=== PATIENT | male | born 1955 | race Caucasian/White ===

== ENCOUNTER 2022-10-10 09:00 | Observation (INO) ==
--- NOTE | 2022-09-05 08:38 | PAT Medication Instructions ---
Medication Instructions Date of Service September 05, 2022 Home Medications Medication Instructions Recorded atorvastatin 40 mg tablet 40 mg PO QPM #90 tabs 11/27/21 alpha lipoic acid 600 mg capsule 600 mg PO BID #60 caps 03/03/22 pregabalin 75 mg capsule 75 mg PO BID #60 caps 03/03/22 hydrochlorothiazide 25 mg tablet See Rx Instructions .Route 04/07/22 .COMPLEX #90 tabs ondansetron HCl 4 mg tablet 4 mg PO Q6H PRN nausea and 05/29/22 vomiting #12 tabs oxycodone 5 mg tablet 5 - 10 mg PO Q4H PRN pain, initial 05/29/22 therapy #18 tabs metoprolol succinate 25 mg 25 mg PO PM #90 tabs 06/02/22 tablet,extended release 24 hr potassium chloride 8 mEq 8 meq PO QAM #30 tabs 06/17/22 tablet,extended release ketoconazole 2 % shampoo 1 applic topical .TIW x 10 minutes 06/30/22 #120 mL aspirin 81 mg tablet,delayed release (Adult Low Dose Aspirin) 81 mg PO QPM bimatoprost 0.01 % eye drops (Lumigan) 1 drops ophthalmic (eye) QPM brimonidine 0.1 % eye drops (Alphagan P) 1 drops ophthalmic (eye) BID multivitamin (Multiple Vitamins tablet) 1 tab PO QAM vit [id number] 500 mg-50 mg-25 mg-40 mg tablet (Bioflex) 2 tab PO QAM atorvastatin 40 mg tablet 40 mg PO QPM alpha lipoic acid 600 mg capsule 600 mg PO BID pregabalin 75 mg capsule 75 mg PO BID fluticasone 250 mcg-salmeterol 50 mcg/dose blistr powdr for inhalation (Advair Diskus) 1 inh inhalation BID PRN hydrochlorothiazide 25 mg tablet See Rx Instructions .Route .COMPLEX ondansetron HCl 4 mg tablet 4 mg PO Q6H PRN oxycodone 5 mg tablet 5 - 10 mg PO Q4H PRN metoprolol succinate 25 mg tablet,extended release 24 hr 25 mg PO PM potassium chloride 8 mEq tablet,extended release 8 meq PO QAM ketoconazole 2 % shampoo 1 applic topical .TIW duloxetine 60 mg capsule,delayed release 60 mg PO QPM losartan 25 mg tablet 25 mg PO QPM metformin 850 mg tablet 850 mg PO QAM STOP taking 2 weeks before surgery (or as soon as possible if surgery is within 2 weeks) vit [id number]-[id number] 500 mg-50 mg-25 mg-40 mg tablet (Bioflex) 2 tab PO QAM alpha lipoic acid 600 mg capsule 600 mg PO BID STOP taking 24 hours before surgery ketoconazole 2 % shampoo 1 applic topical .TIW DO NOT take the morning of surgery multivitamin (Multiple Vitamins tablet) 1 tab PO QAM hydrochlorothiazide 25 mg tablet See Rx Instructions .Route .COMPLEX potassium chloride 8 mEq tablet,extended release 8 meq PO QAM metformin 850 mg tablet 850 mg PO QAM Take morning of surgery With a small sip of water, OTHERWISE NOTHING TO EAT OR DRINK AFTER MIDNIGHT: brimonidine 0.1 % eye drops (Alphagan P) 1 drops ophthalmic (eye) BID pregabalin 75 mg capsule 75 mg PO BID fluticasone 250 mcg-salmeterol 50 mcg/dose blistr powdr for inhalation (Advair Diskus) 1 inh inhalation BID PRN(if needed) ondansetron HCl 4 mg tablet 4 mg PO Q6H PRN(if needed) oxycodone 5 mg tablet 5 - 10 mg PO Q4H PRN(if needed) Take evening before surgery aspirin 81 mg tablet,delayed release (Adult Low Dose Aspirin) 81 mg PO QPM (unless directed otherwise by surgeon) bimatoprost 0.01 % eye drops (Lumigan) 1 drops ophthalmic (eye) QPM brimonidine 0.1 % eye drops (Alphagan P) 1 drops ophthalmic (eye) BID atorvastatin 40 mg tablet 40 mg PO QPM pregabalin 75 mg capsule 75 mg PO BID fluticasone 250 mcg-salmeterol 50 mcg/dose blistr powdr for inhalation (Advair Diskus) 1 inh inhalation BID PRN(if needed) ondansetron HCl 4 mg tablet 4 mg PO Q6H PRN(if needed) oxycodone 5 mg tablet 5 - 10 mg PO Q4H PRN(if needed) metoprolol succinate 25 mg tablet,extended release 24 hr 25 mg PO PM duloxetine 60 mg capsule,delayed release 60 mg PO QPM losartan 25 mg tablet 25 mg PO QPM Other Notes If you have any questions please call us at [phone] or [phone] or [phone] or [phone]
--- NOTE | 2022-09-09 11:41 | Anesthesiology Consultation ---
Date of Service September 09, 2022 Assessment & Plan (1) Encounter for pre-operative examination: - awaiting cardiology response to workload note for optimization. - check BSG am DOS. - cardiology 03/13/22 [place]: "...Coronary artery disease: Recent cath showed obst ructive coronary disease involving the distal RCA and otherwise nonobstructive coronary disease in the proximal RCA, mid LAD and proximal OM1. No angina. Continue current medical therapy including aspirin, statin, and beta charlene. Aortic stenosis: Mild by recent echo. Continue to monitor over time...Pre-op: Based on the reversible ischemia noted on his myocardial perfusion study, he will be at increased risk for adverse cardiac events (around 6%). The defect noted on his nuclear study seemed to correlate with some disease in his right coronary artery. However, the stenotic lesion was quite distal in the right coronary. He was made aware of the elevated risks and still wishes to proceed with surgery. He should continue his beta charlene therapy throughout the perioperative period. Recommend avoiding significant hypotension, tachycardia, bradycardia, anemia and hypoxia..." (pre-op for shoulder surgery) - Outpatient joint assessment: Patient is currently scheduled for inpatient pathway. If re-evaluated pending system levels during current pandemic/surgeon requests outpatient pathway, patient is not recommended candidate for outpatient joint program from anesthesia standpoint. Chart Review Chart Review: Pending: Refer to Additional Notes / Consult section and Patient seen in Pre Admission Testing Teaching & Discussion Pre-Anesthesia Teaching/Discussion Notes: Instructed NPO after midnight before surgery, except medications with 15 cc of water. Medication instructions provided according to the PAT guidelines. History Surgery Operation Date: 10/10/22 07:00 Proposed Procedures p Right Total Knee Arthroplasty - Wesley Zaragoza DO Height/Weight Height: 5 ft 3.5 in Weight: 108.862 kg Allergies Allergy/AdvReac Type Severity Reaction Status Date / Time lisinopril Allergy Intermediate Cough Verified 09/04/22 13:36 Medications Home Medications Medication Instructions Recorded Confirmed Last Taken aspirin 81 mg tablet,delayed 81 mg PO QPM 05/02/19 09/04/22 05/15/22 release (Adult Low Dose Aspirin) bimatoprost 0.01 % eye drops 1 drops ophthalmic (eye) QPM 05/02/19 09/04/22 05/28/22 20:00 (Lumigan) brimonidine 0.1 % eye drops 1 drops ophthalmic (eye) BID 05/02/19 09/04/22 05/28/22 20:00 (Alphagan P) multivitamin (Multiple Vitamins 1 tab PO QAM 05/02/19 09/04/22 05/15/22 tablet) vit 2 tab PO QAM 05/02/19 09/04/22 05/15/22 [id number] 500 mg-50 mg-25 mg-40 mg tablet (Bioflex) atorvastatin 40 mg tablet 40 mg PO QPM #90 tabs 11/27/21 09/04/22 05/28/22 20:00 alpha lipoic acid 600 mg capsule 600 mg PO BID #60 caps 03/03/22 09/04/22 05/28/22 18:30 pregabalin 75 mg capsule 75 mg PO BID #60 caps 03/03/22 09/04/22 05/27/22 18:00 fluticasone 250 mcg-salmeterol 50 1 inh inhalation BID PRN Wheezing 03/14/22 09/04/22 05/19/22 mcg/dose blistr powdr for inhalation (Advair Diskus) hydrochlorothiazide 25 mg tablet See Rx Instructions .Route 04/07/22 09/04/22 05/28/22 18:00 .COMPLEX #90 tabs ondansetron HCl 4 mg tablet 4 mg PO Q6H PRN nausea and 05/29/22 09/04/22 Unknown vomiting #12 tabs oxycodone 5 mg tablet 5 - 10 mg PO Q4H PRN pain, initial 05/29/22 09/04/22 Unknown therapy #18 tabs metoprolol succinate 25 mg 25 mg PO PM #90 tabs 06/02/22 09/04/22 Unknown tablet,extended release 24 hr potassium chloride 8 mEq 8 meq PO QAM #30 tabs 06/17/22 09/04/22 Unknown tablet,extended release ketoconazole 2 % shampoo 1 applic topical .TIW x 10 minutes 06/30/22 09/04/22 Unknown #120 mL duloxetine 60 mg capsule,delayed 60 mg PO QPM 09/04/22 09/04/22 Unknown release losartan 25 mg tablet 25 mg PO QPM 09/04/22 09/04/22 Unknown metformin 850 mg tablet 850 mg PO QAM 09/04/22 09/04/22 Unknown Past Medical History Medical History (Updated 09/09/22 @ 11:46 by Linda Oliver PA-C) Aortic stenosis Mild aortic stenosis (IGOR 1.67 cm) per 01/31/22 echo CAD (coronary artery disease) Recent cath (02/2022) showed obstructive coronary disease involving the distal RCA and otherwise nonobstructive coronary disease in the proximal RCA, mid LAD and proximal OM1 > medical management recommended Carotid artery stenosis < 50% stenosis ICAs bilat, 05/06 carotid doppler COPD (chronic obstructive pulmonary disease) Remote diagnosis per pt but he states that with more recent lung testing, did not find definitive evidence of COPD; pt states is not Rx inhaler GERD (gastroesophageal reflux disease) diet controlled, stable per pt History of COVID-19 09/2020- fatigue, SOB > resolved; 04/2022-symptoms resolved HTN (hypertension) controlled, stable per pt Hyperlipemia Neuropathy feet Pericarditis 5 years ago, no issues since Sleep apnea CPAP (compliant) Spinal stenosis Type 2 diabetes mellitus NIDDM Patient denies h/o stroke, seizures, heart attack, heart failure, blood clots or blood transfusions. Exercise / Class Metabolic Activity III < 4 Walking/Shop/Light housework (shortness of breath with usual activities, denies chest discomfort) Past Family History Family History Father Clotting disorder Pulmonary embolism, Onset Age: 52 CRAO (central retinal artery occlusion) AAA (abdominal aortic aneurysm) Lymphoma Colonic polyp, Onset Age: 50 Mother Ovarian cancer Sister Brain cancer AAA (abdominal aortic aneurysm) Brain tumor, Onset Age: 45 Denies family history of Stroke Past Surgical History Surgical History History of back surgery Lumbar History of cardiac cath 02/2022 [place] History of hernia repair History of shoulder surgery Left. 05/29/22 Grade 1 view, Banks 2, ETT 7.5 + PNB. Hx of appendectomy S/P colonoscopy S/P epidural steroid injection Past Anesthesia History No Hx of Anesthesia Complications and No Family Hx of Anesthesia Complications History of PONV No Hx of PONV and No Hx of Motion Sickness Social History Smoking Status: Former smoker Do You Dip or Chew Tobacco: No Smoking End Date: 1982 Hx Alcohol Use: No Hx Substance Use: No substance use type: does not use Review of Systems Patient denies chest pain, fever, chills, cough, wheezing, or palpitations. Physical Exam Vital Signs Vitals BP 108/72 P 70 TEMP 98.2 SP02 95% on RA RESP 17 Physical Full cervical extension range of motion without pain TMD < 3 finger breadths Mallampati Score 3 Dentition: intact, denies chipped or loose teeth, caps/crowns, implants or bridges Lungs: normal respiratory effort. Clear throughout to auscultation, no adventitious breath sounds Cardiac: regular rate and rhythm, 2/6 systolic murmur Carotid arteries: negative bruit bilat Lab Results Anesthesia Preop Results Results Anesthesia Widget: WBC 5.60 K/ul (4.8-10.8) 09/09/22 Hgb 14.9 g/dl (14.0-18.0) 09/09/22 Hct 41.6 % (42.0-52.0) L 09/09/22 Plt 168 K/uL (130-400) 09/09/22 Na 134 mmol/L (136-145) L 09/09/22 K 3.4 mmol/L (3.5-5.1) L 09/09/22 Cl 99 mmol/L (98-107) 09/09/22 CO2 26 mmol/L (21-32) 09/09/22 BUN 20 mg/dl (6-23) 09/09/22 Creat 0.80 mg/dl (0.6-1.4) 09/09/22 Glucose Level 129 mg/dl (70-99(Fasting)) H 09/09/22 PT 11.1 Seconds (9.0-12.0) 09/09/22 PTT 27.3 Seconds (21.0-31.0) 09/09/22 INR 1.0 (0.9-1.1) 09/09/22 HA1c 6.8 % (4.5-5.6) H 09/09/22 Blood Type O Positive 09/09/22 Antibody Screen NEGATIVE 09/09/22 Testing Electrocardiogram Date: 09/09/22 NSR, rate 62 bpm T wave abnormality, consider inferolateral ischemia T wave inversion more evident in inferior leads Chest X-Ray Date: 01/22/22 No lines and tubes are seen. The aorta is tortuous. The remainder of the cardiomediastinal silhouette is unremarkable. The lungs are clear. No evidence of pleural effusion or pneumothorax. IMPRESSION: No acute chest disease. Echocardiogram Date: 01/31/22 EF 55-60% Grade I diastolic dysfunction Normal LV wall motion Mild valvular aortic stenosis (IGOR 1.67 cm) Stress Test Date: 02/06/22 1. Lexiscan myocardial perfusion study suggests a moderate sized area of right coronary artery distribution ischemia. 2. Normal left ventricular size and systolic function. Calculated ejection fraction 63%. Possible inferobasal hypokinesis. 3. No Lexiscan induced ECG changes. 4. No anginal symptoms. MPHR 59% EF 63% Cardiac Catheterization Date: 02/13/22 Left main: Left main coronary artery was relatively short but bifurcated normally into the left anterior descending left circumflex arteries. Luminal irregularities but no discrete stenoses. Left anterior descending: Left anterior descending was a relatively small vessel. It had luminal regularities throughout its course and a long approximately 30% stenosis in its midportion. It produced 1 branching diagonal system that was free of obstructive disease. Left circumflex: Left circumflex was a nondominant vessel. It produced a relatively small high OM branch with 60-70% stenosis at its ostium luminal regularities throughout the remainder of the vessel. There are luminal regularities in the ongoing AV groove vessel prior to developing several branches in its distal portion. No obstructive disease in the remainder of the vessel. Right coronary artery: The right coronary was a very large and ectatic vessel. It had several fairly discrete stenosis throughout its course. There is a 50% proximal stenosis and 2 additional 50% stenosis in its midportion. In its distal portion there is approximately 70% stenosis prior to continuation of the PDA. Left heart catheterization was not performed as the patient did have spasm in the radial artery and there was difficulty advancing the catheter subsequent to angiography. Impression: Obstructive coronary disease involving the distal RCA Nonobstructive coronary disease in the proximal RCA, mid LAD and proximal OM1 Plan: Aggressive risk factor modification and medical management of obstructive coronary disease Other Testing Carotid duplex 04/28/22 < 50% stenosis ICAs bilat COVID-19 Risk Screen Screening Information COVID-19 Screen Date: 09/09/22 Exposure 21 Days Family/Household +COVID Last 21 Days: No Exposure 10 Days Any COVID Exposure Last 10 Days: No Symptoms Last 10 Days Experienced COVID Sx Last 10 Days: No + COVID 0-90 Days COVID + in Last 0-90 Days: No
--- NOTE | 2022-10-09 13:12 | History & Physical Report ---
Date of Service October 09, 2022 Assessment & Plan (1) Osteoarthritis of right knee: We will proceed with a right total knee arthroplasty. Postoperatively he will be started on aspirin for DVT prophylaxis and kept overnight in the hospital for postoperative medical management. He plans to have the hospital set up home health before discharge. History of Present Illness Chief Complaint: Osteoarthritis of the right knee. Primary Care Provider: Jayden Minaya MD Reji is a pleasant 67-year-old male, who has been dealing with chronic increasing right knee pain. X-rays have shown advanced osteoarthritis of the right knee. He has already failed extensive conservative treatment including physical therapy, anti-inflammatories, multiple injections, and activity modification. He is still struggling with his knee. After failing conservative treatment, he has elected proceed with a right total knee arthroplasty. Allergies Allergy/AdvReac Type Severity Reaction Status Date / Time lisinopril Allergy Intermediate Cough Verified 09/22/22 12:55 Home Medications Medication Instructions Recorded Confirmed Type aspirin 81 mg tablet,delayed 81 mg PO QPM 05/02/19 09/22/22 History release (Adult Low Dose Aspirin) bimatoprost 0.01 % eye drops 1 drops ophthalmic (eye) QPM 05/02/19 09/22/22 History (Lumigan) brimonidine 0.1 % eye drops 1 drops ophthalmic (eye) BID 05/02/19 09/22/22 History (Alphagan P) multivitamin (Multiple Vitamins 1 tab PO QAM 05/02/19 09/22/22 History tablet) vit 2 tab PO QAM 05/02/19 09/22/22 History [id number]-[id number] 500 mg-50 mg-25 mg-40 mg tablet (Bioflex) atorvastatin 40 mg tablet 40 mg PO QPM #90 tabs 11/27/21 09/22/22 Rx alpha lipoic acid 600 mg capsule 600 mg PO BID #60 caps 03/03/22 09/22/22 Rx fluticasone 250 mcg-salmeterol 50 1 inh inhalation BID PRN Wheezing 03/14/22 09/22/22 History mcg/dose blistr powdr for inhalation (Advair Diskus) ondansetron HCl 4 mg tablet 4 mg PO Q6H PRN nausea and 05/29/22 09/22/22 Rx vomiting #12 tabs oxycodone 5 mg tablet 5 - 10 mg PO Q4H PRN pain, initial 05/29/22 09/22/22 Rx therapy #18 tabs ketoconazole 2 % shampoo 1 applic topical .TIW x 10 minutes 06/30/22 09/22/22 Rx #120 mL duloxetine 60 mg capsule,delayed 60 mg PO QPM 09/04/22 09/22/22 History release metformin 850 mg tablet 850 mg PO QAM 09/04/22 09/22/22 History hydrochlorothiazide 25 mg tablet See Rx Instructions .Route 09/12/22 09/22/22 Rx .COMPLEX #90 tabs metoprolol succinate 25 mg 25 mg PO PM #90 tabs 09/19/22 09/22/22 Rx tablet,extended release 24 hr potassium chloride 8 mEq 8 meq PO QAM #30 tabs 09/22/22 Rx tablet,extended release pregabalin 150 mg capsule 150 mg PO BID #60 caps 09/22/22 09/22/22 Rx losartan 25 mg tablet 25 mg PO QPM #90 tabs 10/07/22 Rx Past Med/Surg History Medical History Aortic stenosis Mild aortic stenosis (IGOR 1.67 cm) per 01/31/22 echo CAD (coronary artery disease) Recent cath (02/2022) showed obstructive coronary disease involving the distal RCA and otherwise nonobstructive coronary disease in the proximal RCA, mid LAD and proximal OM1 > medical management recommended Carotid artery stenosis < 50% stenosis Mary simon, 05/06 carotid doppler COPD (chronic obstructive pulmonary disease) Remote diagnosis per pt but he states that with more recent lung testing, did not find definitive evidence of COPD; pt states is not Rx inhaler GERD (gastroesophageal reflux disease) diet controlled, stable per pt History of COVID-19 09/2020- fatigue, SOB > resolved; 04/2022-symptoms resolved HTN (hypertension) controlled, stable per pt Hyperlipemia Neuropathy feet Pericarditis 5 years ago, no issues since Sleep apnea CPAP (compliant) Spinal stenosis Type 2 diabetes mellitus NIDDM Surgical History History of back surgery Lumbar History of cardiac cath 02/2022 [place] History of hernia repair History of shoulder surgery Left. 05/29/22 Grade 1 view, Banks 2, ETT 7.5 + PNB. Hx of appendectomy S/P colonoscopy S/P epidural steroid injection Family History Father Clotting disorder Pulmonary embolism, Onset Age: 52 CRAO (central retinal artery occlusion) AAA (abdominal aortic aneurysm) Lymphoma Colonic polyp, Onset Age: 50 Mother Ovarian cancer Sister Brain cancer AAA (abdominal aortic aneurysm) Brain tumor, Onset Age: 45 Denies family history of Stroke Social History Smoking Status: Former smoker Age Quit Using Tobacco: 27; packs per day: 1; Smoking End Date: 1982; Second Hand Exposure: No; Do You Dip or Chew Tobacco: No; Tobacco Cessation Education Requested by Patient: No Hx Alcohol Use: No Hx Substance Use: No Preferred Language: Czech Communication Ability: Effective Brine Mixer Operator Required: No Beliefs That Will Affect Care: None marital status: Current Living Situation: Spouse current occupational status: employed current occupation: retired , 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 Physical Exam On physical examination the right knee, he has good range of motion of 0 to 120 degrees. No instability. Pain over the distal medial femoral condyle and over the medial joint line.. Constitutional WD/WN, vitals as above Eyes PERRL, conjunctivae normal, anicteric sclerae ENMT external ear and nose normal, oropharynx normal Neck trachea midline, no thyromegaly Respiratory normal respiratory effort, lungs clear to auscultation Cardiovascular RRR, no murmur, no edema Gastrointestinal (Abdomen) normal bowel sounds, soft, nontender, no hepatosplenomegaly Skin no rashes, warm and dry Psychiatric A+Ox3, euthymic affect Results & Data Results & Data Laboratory Results . Diagnostic Findings X-rays of the right knee show advanced osteoarthritis with some joint space narrowing and osteophyte formation.. PG Care Time/CCT Total # of Minutes Spent Total Time Spent with Patient: Total time spent is greater than 50% in coordination of care (as documented) at patient's floor/unit and/or counseling patient: Coding Level of Care Code None Diagnoses Osteoarthritis of right knee M17.11
[~2022-10-10 09:00] MED LIST: ACETAMINOPHEN 500 MG TAB PO SCH; BUPIVACAINE 0.5 % 5 MG/1 ML PF 10ML VIAL ONE; FAMOTIDINE 20 MG TAB PO SCH; GABAPENTIN 300 MG CAP PO SCH; LR 500ML BOLUS, THEN 15ML/HR IV SCH; LR 60ML/HR IV SCH; ORTHO JOINT MIX INFIL SCH; ROPIVACAINE 0.5% 5 MG/ML 30 ML VIAL ONE; TRANEXAMIC ACID 1,000 MG **IV Intra-op IV SCH; TRANEXAMIC ACID 1,000 MG **IV Pre-op IV SCH; ceFAZolin 2000MG 2,000 MG/15 ML SYR IV SCH; dexAMETHasone 4 MG TAB PO SCH
[2022-10-10] MEDS ORDERED: MIDAZOLAM HCL 1 MG/ML 2ML VIAL ONE (09:54)
[2022-10-10] MEDS ORDERED: PROPOFOL IV EMULSION 10 MG/ML 20 ML VIAL IV ONE ×2 (09:55→12:41)
[2022-10-10] MEDS ORDERED: ONDANSETRON INJ 2 MG/ML 2 ML VIAL ONE (09:55)
[2022-10-10] MEDS ORDERED: LIDOCAINE 2% MPF LOCAL 5 ML VIAL ONE (09:55)
[2022-10-10] MEDS ORDERED: ePHEDrine sulfate 50 MG/ML AMP ONE (09:55)
[2022-10-10] MEDS ORDERED: GLYCOPYRROLATE 0.2 MG/ML VIAL ONE (09:55)
--- NOTE | 2022-10-10 10:29 | History & Physical Bridge Note ---
Date of Service October 10, 2022 History & Physical Bridge Note I have examined the patient, reviewed the History & Physical and in the interval since the performance of the History & Physical I have noted the following changes of clinical significance: no changes noted
[2022-10-10] MEDS ORDERED: ePHEDrine sulfate 50 MG/ML AMP IV PRN (10:44)
[2022-10-10] MEDS ORDERED: ONDANSETRON INJ 2 MG/ML 2 ML VIAL IV PRN ×2 (10:44→15:44)
[2022-10-10] MEDS ORDERED: MoRPHine SULFATE 10 MG/ML CARP/VIAL IV PRN (10:44)
[2022-10-10] MEDS ORDERED: ATROPINE SULFATE 0.1 MG/ML 10ML SYR IV PRN (10:44)
[2022-10-10] MEDS ORDERED: fentaNYL citrate PF 100 MCG/2 ML VIAL IV PRN (10:44)
[2022-10-10] MEDS ORDERED: MEPERIDINE HCL 25 MG/ML CARP/VIAL IV PRN (10:44)
[2022-10-10] MEDS ORDERED: ORTHO JOINT ANESTHETIC ONE (11:14)
[2022-10-10] MEDS ORDERED: PHENYLEPHRINE HCL 10 MG/ML VIAL ONE (11:51)
--- NOTE | 2022-10-10 12:52 | Operative Report ---
PG Post Operative Report Pre & Post Diagnosis Operation Date: 10/10/22 11:40 Pre-Op Diagnosis: Degenerative joint disease, right knee Post-Op Diagnosis: Degenerative joint disease, right knee I identified the patient and participated in the time-out.: Yes Procedure Operation Date: 10/10/22 11:40 Actual Procedures p Right Total Knee Arthroplasty, Cemented(Right) - Wesley Zaragoza DO Surgeon Wesley Zaragoza DO [employer] Wesley Rendon PA-C Estimated Blood Loss 30 Findings Consistent with Post-Op Diagnosis Specimens Right femoral tibial bone Description of Procedure Implants used: I used a Carlotta Persona total knee arthroplasty system with a size 10 femur, G tibia, 34 oval patella, and a size 12 medial congruent polyethylene bearing. All components were cemented in place with Biomet cement. Reji chavez [facility] for the above procedure. He was seen in the preoperative holding area and the operative extremity was identified and signed. He was given a preoperative antibiotic, TXA, a spinal anesthetic and an adductor nerve block. He was taken back to the operating room and laid on the table in supine position. He was given basic sedation. The operative knee was then prepped and draped in sterile fashion. A timeout was done, and the patient and the operative extremity was properly identified. A midline incision was made directly over the patella. Dissection was taken down to the extensor mechanism. A midvastus arthrotomy was used. The medial retinaculum was released and the fat pad was mostly excised. The knee was flexed and the ACL, PCL, and meniscus were removed. A drill was sent down the center of the femoral canal followed by an intramedullary cruz. Off that cruz a distal femoral cutting block was placed. 9 mm was resected off the distal femur at 5 of valgus. A posterior referencing AP sizing guide was then placed on the distal femur. The femur measured to be a size 10. 2 drill holes were placed in 3 of external rotation. A 4-in-1 cutting block was then impacted into place. Anterior, posterior, and chamfer cuts were then made. The proximal tibia was then exposed. An external tibial alignment guide was placed. A tibial cut guide was then anchored in place and the proximal tibia was then resected. The posterior aspect of the knee was then opened up and any additional meniscus fragments and osteophytes were removed. The tibia measured to be a size G. The tibial plate was then placed in the appropriate rotation and the tibia was drilled and punched. Trial components were then placed. I used a size 12 medial congruent polyethylene insert. The knee was brought through a full range of motion and felt to be stable. The peg holes for the femoral component were then drilled. The patella was then everted and 9 mm was resected off the posterior aspect of the patella. The patella measured to be a size 34 oval. 3 peg holes were then drilled. A trial patella was placed. The knee was once again brought through a full range of motion and felt to be stable. Trial components were then removed. The surrounding soft tissues were injected with 100 cc of an orthopedic pain control cocktail. All components were then cemented into place with Biomet cement. The final polyethylene insert was then snapped into place. Once cement was dry the tourniquet was deflated. Hemostasis was obtained. A dilute betadyne lavage was then done for 3 minutes. The joint was then irrigated with normal saline solution. The midvastus arthro santana was then closed with #1 Vicryl suture. The skin was closed with 2-0 Vicryl, 3-0V lock suture, and humaira. A soft compressive dressing was placed. He was then transferred to a hospital bed and taken to the postanesthesia care unit in stable condition. He tolerated the procedure well. Wesley Rendon PA-C, was present for the entire procedure. He was critical for patient positioning, prepping, draping, retraction exposure, wound closure and application of sterile dressing. I attest to the content of the Intraoperative Record and any orders documented therein. Any exceptions are noted below.
--- NOTE | 2022-10-10 14:42 | XRay Report ---
TWO VIEWS RIGHT KNEE CLINICAL HISTORY: Postoperative examination. FINDINGS: AP and crosstable lateral portable views of the right knee are obtained. A right knee arthr oplasty is in near anatomic alignment. There has been undersurface remodeling of the patella. No acut e fracture is seen. There are expected postoperative changes around the knee including skin clips, so ft tissue edema, and subcutaneous gas. IMPRESSION: Expected postoperative changes status post right knee arthroplasty. No acute fracture is seen. ACT 112: Negative or not required by law. Electronically signed by: Marty Echevarria M.D. 10/10/2022 2:40 PM
--- NOTE | 2022-10-10 15:04 | Anesthesiology Progress Note ---
Date of Service October 10, 2022 Anesthesia Post Procedure Vital Signs Vital Signs: Temp Pulse Resp BP Pulse Ox O2 Del Method O2 Flow Rate 10/10/22 15:00 74 12 105/64 94 Room Air 10/10/22 14:50 77 19 99/61 L 96 Room Air 10/10/22 14:40 71 13 101/59 L 95 Room Air 10/10/22 14:30 70 13 96/58 L 95 Room Air 10/10/22 14:20 71 13 99/57 L 93 Room Air 10/10/22 14:10 75 22 97/57 L 95 Room Air 10/10/22 14:00 77 17 106/59 L 95 Room Air 10/10/22 13:50 76 22 88/48 L 95 Room Air 10/10/22 13:40 77 20 98/55 L 96 Room Air 10/10/22 13:30 76 19 93/58 L 94 Room Air 10/10/22 13:20 81 21 95/55 L 95 Room Air 10/10/22 13:14 97.2 F L 80 18 91/54 L 98 Oxymask 4 10/10/22 09:51 98.1 F 70 18 121/82 95 Room Air Transfer of Care Handoff Completed per policy Notes Mental Status: alert / awake / arousable and participated in evaluation Patient Amnestic to Procedure: Yes Nausea / Vomiting: adequately controlled Pain: adequately controlled Airway Patency, RR, SpO2: stable & adequate BP & HR: stable & adequate Hydration State: stable & adequate Neuraxial Anesthesia: was administered and sensory block is resolving Anesthetic Complications: no major complications apparent and Pt Satisfied with anesthetic care
[2022-10-10] MEDS ORDERED: HYDROmorphone INJ 0.5 MG/0.5 ML SYR IV PRN (15:44)
[2022-10-10] MEDS ORDERED: METOCLOPRAMIDE HCL INJ 5 MG/ML 2 ML VIAL IV PRN (15:44)
[2022-10-10] MEDS ORDERED: PHARMACY GLYCEMIC MGMT CONSULT PRN (15:44)
[2022-10-10] MEDS ORDERED: MAGNESIUM HYDROXIDE SUSP 30 ML UDC PO PRN (15:44)
[2022-10-10] MEDS ORDERED: bisacodyL 10 MG SUPP PR PRN (15:44)
[2022-10-10] MEDS ORDERED: NALOXONE HCL 0.4 MG/1 ML VIAL/CARP IV PRN (15:44)
[2022-10-10] MEDS ORDERED: oxyCODONE HCL IR 5 MG TAB (IMMEDIATE RELEASE) PO PRN (15:44)
[2022-10-10] MEDS: SODIUM CHLORIDE 0.9% 1000ML 1,000 ML IV SCH (15:58)
[2022-10-10] MEDS ORDERED: FLUTICASONE/VILANTEROL 200/25MCG 14 PUFFS/INHALER INH PRN (16:27)
[2022-10-10] MEDS: hydroCHLOROthiazide 25 MG TAB PO SCH (17:19)
[2022-10-10] MEDS: KETOROLAC TROMETHAMINE 15 MG/ML VIAL IV SCH ×2 (17:19→22:18)
[2022-10-10] MEDS: ACETAMINOPHEN 500 MG TAB PO SCH (17:27)
[2022-10-10] MEDS: INSULIN ASPART PER UNIT CHARGE SC SCH ×3 (17:33→23:47)
--- NOTE | 2022-10-10 17:56 | Pharmacy Report ---
Pharmacy Glycemic Short Note 2 - Date of Service October 10, 2022 - Glycemic Short BSG Results (Last 24 hours): 10/10/22 10/10/22 10/10/22 09:47 13:16 16:55 POC Glucose 162 H 176 H 216 H OUTPATIENT ANTIDIABETIC REGIMEN: * metformin 850 mg daily ASSESSMENT: * 67 year old now s/p right TKA, POD 0 - pharmacy consulted for glycemic management. Patient only on metformin at home. Postop BSG elevated in 200s, will start novolog stress of 3. Patient did receive oral steroids preop likely contributing to elevated BSGs. Will consider small dose of basal insulin at HS if BSGs remain elevated PLAN FOR INPATIENT GLYCEMIC CONTROL: * Hold outpatient oral diabetes medications * Basal insulin * Lantus 0-10 units HS based upon BSG scale * Bolus insulin * NovoLog per scale ACHS or Q6hrs while NPO * Goal Range: Low 110 mg/dL - High 140 mg/dL * Correction Factor: 15 mg/dL/unit * Nutritional / Prandial insulin per carb ratio of 1 unit per 5 grams CHO consumed
[2022-10-10] MEDS ORDERED: DEXTROSE 50% 50 ML SYRINGE IV PRN (18:00)
[2022-10-10] MEDS ORDERED: CARBOHYDRATES FOR HYPOGLYCEMIA PO PRN (18:00)
[2022-10-10] MEDS ORDERED: GLUCOSE 10 TAB/TUBE PO PRN (18:00)
[2022-10-10] MEDS ORDERED: GLUCAGON FOR INJ 1 MG VIAL IM PRN (18:00)
[2022-10-10] MEDS ORDERED: GLUCOSE 40% GEL 15 GM TUBE PO PRN (18:00)
[2022-10-10] MEDS: ceFAZolin 2000MG 2,000 MG/15 ML SYR IV SCH (18:22)
[2022-10-10] MEDS ORDERED: LANTUS PER UNIT CHARGE SC ONE (20:00)
[2022-10-10] MEDS: DOCUSATE SODIUM 100 MG CAP PO SCH (20:30)
[2022-10-10] MEDS: ASPIRIN 81 MG ECTAB PO SCH (20:31)
[2022-10-10] MEDS: PREGABALIN 150 MG CAP PO SCH (20:57)
[2022-10-10] MEDS ORDERED: DULoxetine HCL 60 MG CAP PO SCH (21:00)
[2022-10-10] MEDS ORDERED: LOSARTAN POTASSIUM 25 MG TAB PO SCH (21:00)
[2022-10-10] MEDS ORDERED: SENNA 8.6 MG TAB PO SCH (21:00)
[2022-10-10] MEDS ORDERED: ATORVASTATIN 40 MG TAB PO SCH (21:00)
[2022-10-10] MEDS ORDERED: METOPROLOL SUCC 25MG EXT REL TAB PO SCH (21:00)
[2022-10-11] MEDS: SODIUM CHLORIDE 0.9% 1000ML 1,000 ML IV SCH (02:20)
[2022-10-11] MEDS: ceFAZolin 2000MG 2,000 MG/15 ML SYR IV SCH (02:26)
[2022-10-11] MEDS: ACETAMINOPHEN 500 MG TAB PO SCH ×2 (02:27→10:12)
[2022-10-11] MEDS: INSULIN ASPART PER UNIT CHARGE SC SCH ×2 (04:20→08:38)
[2022-10-11] MEDS: KETOROLAC TROMETHAMINE 15 MG/ML VIAL IV SCH ×2 (04:21→10:13)
[2022-10-11] MEDS: hydroCHLOROthiazide 25 MG TAB PO SCH (08:29)
[2022-10-11] MEDS: DOCUSATE SODIUM 100 MG CAP PO SCH (08:29)
[2022-10-11] MEDS: ASPIRIN 81 MG ECTAB PO SCH (08:30)
[2022-10-11] MEDS: PREGABALIN 150 MG CAP PO SCH (08:37)
--- NOTE | 2022-10-11 08:47 | Orthopedic Progress Note ---
Date of Service October 11, 2022 Assessment & Plan (1) Status post right knee replacement: Overall he is doing very well. Is not having much pain in the right knee. He will be seen by physical therapy today for ambulation and range of motion exercises. He is on aspirin for DVT prophylaxis. He can be discharged home later today. He will follow-up with orthopedics in 2 weeks. Judy Mendoza was seen and examined at bedside this morning. Overall he is doing very well. He is not having much pain in the right knee. He has been up and ambulating to the bathroom. He has no complaints.. Review of Systems All systems reviewed & are unremarkable except as noted in HPI & below. Physical Exam On physical examination of the right knee, the dressing is clean and dry. His leg is out full extension. He has active dorsiflexion plantarflexion of the right ankle.. Results & Data Results & Data Laboratory Results . Diagnostic Findings Postoperative x-rays of the right knee show the prosthesis to be in anatomic alignment without any evidence of fracture, screws, or loosening.. PG Care Time/CCT Total # of Minutes Spent Total Time Spent with Patient: Total time spent is greater than 50% in coordination of care (as documented) at patient's floor/unit and/or counseling patient: Coding Level of Care Code 57709 Post Operative Follow-Up Diagnoses Status post right knee replacement Z96.651
[2022-10-11] MEDS ORDERED: MULTIVITAMIN TAB PO SCH (09:00)
[2022-10-11] MEDS ORDERED: LANTUS PER UNIT CHARGE SC SCH (09:00)
[2022-10-11] MEDS ORDERED: POTASSIUM CHLORIDE 10 MEQ TABCR PO SCH (09:00)
== END 2022-10-11 11:53 | disposition home health service (06) ==
LOC: 3E 09:00 → ASU 09:00